=== PATIENT | male | born 1985 | race Caucasian/White ===

== ENCOUNTER 2022-06-09 14:39 | Outpatient (CLI) | payer OTHER, SELFPAY ==
[2022-06-09 10:38] LABS: Creatinine Urine 332.3 mg/dL
[2022-06-09 10:40] LABS: Albumin* 4.5 g/dL (3.3-5.0); Chloride* 97 mmol/L (96-114)
[2022-06-09 10:41] LABS: Potassium* 4.7 mmol/L (3.6-5.1); Sodium* 136 mmol/L (135-149)
[2022-06-09 10:42] LABS: Microalbumin Creatinine Ratio 0 mg/g (0-30); Microalbumin Urine 2 mg/dL
[2022-06-09 10:43] LABS: Aspartate Amino Transferase* 126 U/L (12-35); Bilirubin Total* 1.3 mg/dL (0.1-1.5); Blood Urea Nitrogen* 19 mg/dL (5-24); Carbon Dioxide* 33 mmol/L (20-32); Cholesterol* 183 mg/dL (90-199); Creatinine* 0.8 mg/dL (0.5-1.5); Estimated Glomerular Filt Rate 116 ml/min; Glucose* 227 mg/dL (60-115); Total Protein* 7.1 g/dL (6.0-8.3)
[2022-06-09 10:44] LABS: Alanine Aminotransferase* 183 U/L (4-50); Alkaline Phosphatase* 83 U/L (40-150); Calcium* 9.8 mg/dL (8.4-10.6); HDL Cholesterol* 41 mg/dL (>=40); LDL Cholesterol Calculated 109 mg/dL (<100); Triglycerides* 164 mg/dL (40-149)
== END 2022-06-09 14:40 | disposition home or self-care (01) ==
PROVIDERS: PCP Internal Medicine; Visit Provider Internal Medicine
DX: E11.9 Type 2 diabetes mellitus without complications (principal); K76.0 Fatty (change of) liver, not elsewhere classified; E66.9 Obesity, unspecified
CPT/HCPCS: 80053; 80061; 82043; 82570

== ENCOUNTER 2022-09-14 16:15 | Outpatient (CLI) | payer OTHER, SELFPAY ==
[2022-09-14 17:38] LABS: Alanine Aminotransferase* 98 U/L (4-50); Aspartate Amino Transferase* 52 U/L (12-35)
== END 2022-09-14 16:16 | disposition home or self-care (01) ==
PROVIDERS: PCP Internal Medicine; Visit Provider Internal Medicine
DX: E11.9 Type 2 diabetes mellitus without complications (principal); K76.0 Fatty (change of) liver, not elsewhere classified; E66.9 Obesity, unspecified
CPT/HCPCS: 84450; 84460

== ENCOUNTER 2023-03-12 07:50 | Outpatient (CLI) | payer OTHER, SELFPAY | END 2023-03-12 07:51 | disposition home or self-care (01) | LOC: NFLDREF 11:56 | PROVIDERS: PCP Internal Medicine; Referring Provider Internal Medicine; Visit Provider Internal Medicine | DX: E11.9 Type 2 diabetes mellitus without complications (principal); E66.9 Obesity, unspecified; K76.0 Fatty (change of) liver, not elsewhere classified; Z13.6 Encounter for screening for cardiovascular disorders | CPT/HCPCS: 80053; 80061; 82043; 82570 ==

== ENCOUNTER 2023-09-28 08:05 | Outpatient (CLI) | payer OTHER, SELFPAY ==
--- OUTSIDE RECORDS SUMMARY | 2023-10-01 08:43 | XMS_ITS | Clinical Summary ---
Author Name Unknown Organization [facility] Address [address] [place] [address] Care Team Providers Care Cranberry Farm Supervisor Name Role Phone No Ref-Primary, Physician Primary Care Provider Vikash Major MD Unavailable [phone] Mary Martino APRN, CNP Unavailable [phone] Allergies No known active allergies Medications Medication Sig Dispensed Refills Start Date End Date Status cholestyramine (QUESTRAN) 4 g packetIndications:S/P cholecystectomy Take 1 packet (4 g) by mouth 3 times daily (with meals) 90 each 1 12/08/2020 Active Additional Information Patient not taking.Reported on 05/25/2021 metFORMIN (GLUCOPHAGE-XR) 500 MG 24 hr tabletIndications:Typ e 2 diabetes mellitus without complication, without long-term current use of insulin (H) Take 1 tablet (500 mg) by mouth daily (with dinner) 90 tablet 3 05/25/2021 Active Active Problems Problem Noted Date Diagnosed Date Diabetes mellitus, type 2 12/17/2020 Morbid obesity 12/17/2020 Immunizations Name Administration Dates Next Due COVID-19 MONOVALENT 12+ (Pfizer) 01/29/2021,05/2 09/2020 Flu, Unspecified 04/30/2018 Hepatitis B, Adult 12/08/2020 Influenza (H1N1) 04/30/2018 MMR 12/08/2020 TDAP (Adacel,Boostrix) 12/08/2020 Family History Medical History Relation Comments Prostate Cancer Paternal Grandfather Diabetes Paternal Grandmother Relation Status Comments Father Alive Maternal Grandfather Alive Heart surge ry Maternal Grandmother Alive Mother Alive Paternal Grandfather Paternal Grandmother Sister Alive Social History Tobacco Use Types Packs/Day Years Used Date Smoking Tobacco: Light Smoker Cigarettes Cigars Smokeless Tobacco: Never Tobacco Cessation:Ready to Q uit: No; Counseling Given: No Comments:Random. Alcohol Use Standard Drinks/Week Comments Yes 0 (1 standard drink = 0.6 oz pur e alcohol) PHQ-2 Answer Date Recorded PHQ-2 Score 0 12/08/2020 Adolescent Education Answer Date Record ed Getting School Help Needed Not on file 05/11 Sex and Gender Information Value Date Recorded Sex Assigned at Not on file Gender Identity Not on file Sexual Orientation Not on file Last Filed Vital Signs Vital Sign Reading Time Taken Comments Blood Pressure 128/76 05/25/2021 4:07 PM CDT Pulse 66 05/25/2021 4:07 PM CDT Temperature 36.3 ??C (97.4 ??F) 05/25/2021 4:07 PM CD T Respiratory Rate 20 05/25/2021 4:07 PM CDT Oxygen Saturation 98% 05/25/2021 4:07 PM CDT Inhaled Oxygen Concentration - - Weight 119.3 kg (263 lb) 05/25/2021 4:07 PM CDT Height 177.8 cm (5' 10) 05/25/2021 4:07 PM CDT Body Mass Index 37.74 05/25/2021 4:07 PM CDT Plan of Treatment Health Maintenance Due Date Last Done Comments ANNUAL REVIEW OF HM ORDERS 1984 DIABETIC FOOT EXAM 1984 Pneumococcal Vaccine: Pediatrics (0 to 5 Years) and At-Risk Patients (6 to 64 Years) (1 of 2 - PCV) 1990 LIPID 06/02/2020 06/02/2019, 06/01/2017 HEPATITIS B IMMUNIZATION (2 of 3 - 19+ 3-dose series) 01/05/2021 12/08/2020 A1C 08/25/2021 05/25/2021, 11/19, 06/02/2019 YEARLY PREVENTIVE VISIT 12/08/2021 12/09/19 21, 06/02/2019, 06/01/2017 MICROALBUMIN 12/17/2021 12/17/2020, 06/02/2019 BMP 05/25/2022 05/25/2021, 11/20, 12/08/2020, Additional history exists EYE EXAM 05/25/2022 05/25/2021 COVID-19 Vaccine ( season) 2023 01/29/2021, 01/08/2021 INFLUENZA VACCINE (#1) 2023 04/30/2018, 2017 PHQ-2 (once per calendar year) 2023 12/08/2020, 07/21/2019, 06/02/2019, Additional history exists ADVANCE CARE PLANNING 12/08/2025 12/08/2020 (Decline d) DTAP/TDAP/TD IMMUNIZATION (2 - Td or Tdap) 12/08/2030 12/08/2020 HIV SCREENING Completed 06/02/2019 HEPATITIS C SCREENING Completed 12/17/2020 HPV IMMUNIZATION Aged Out No longer e ligible based on patient's age to complete this topic IPV IMMUNIZATION Aged Out No longer e ligible based on patient's age to complete this topic MENINGITIS IMMUNIZATION Aged Out No l onger eligible based on patient's age to complete this topic RSV MONOCLONAL ANTIBODY Aged Out No l onger eligible based on patient's age to complete this topic Care Teams Cranberry Farm Supervisor Relationship Specialty Start Date End Date No Ref-Primary, Physician PCP - General 06/02/19 Vikash Major MD [address] [facility] [address] [place] [address] Urology 06/02/19 Mary Martino APRN UPPER SHAPER [address] [place] [address] Assigned PCP 05/29/21
--- OUTSIDE RECORDS SUMMARY | 2023-10-01 08:43 | XMS_ITS | Referral Summary ---
Author Name Unknown Organization [facility] Address [address] [place] [address] Care Team Providers Care Bobbin Washer Name Role Phone No Ref-Primary, Physician Primary Care Provider Vikash Major MD Unavailable [phone] Mary Martino APRN, CNP Unavailable [phone] Allergies No known active allergies Medications Medication [...] (H1N1) 04/30/2018 MMR 12/08/2020 TDAP (Adacel,Boostrix) 12/08/2020 Social History Tobacco Use Types Packs/Day Years [...] 05/25/2021 4:07 PM CDT Plan of Treatment Not on file Care Teams Bobbin Washer Relationship Specialty Start Date End Date No Ref-Primary, Physician PCP - General 06/02/19 Vikash Major MD [address] [address] Urology 06/02/19 Mary Martino APRN PAYROLL BENEFITS CLERK [address] [place] [address] Assigned PCP 05/29/21
== END 2023-09-28 08:06 | disposition home or self-care (01) ==
LOC: NFLDREF 10-01 08:28
PROVIDERS: PCP Internal Medicine; Referring Provider Internal Medicine; Visit Provider Internal Medicine
DX: E11.9 Type 2 diabetes mellitus without complications (principal); K76.0 Fatty (change of) liver, not elsewhere classified; R10.9 Unspecified abdominal pain; Z79.84 Long term (current) use of oral hypoglycemic drugs
CPT/HCPCS: 80053; 80061; 82043; 82150; 82570; 83516; 83690; 86364

== ENCOUNTER 2023-12-31 07:52 | Outpatient (CLI) | payer OTHER, SELFPAY ==
--- OUTSIDE RECORDS SUMMARY | 2024-01-02 08:36 | XMS_ITS | Clinical Summary ---
Author Name Unknown Organization [facility] Address [address] [place] [address] Care Team Providers Care Poison Information Specialist Name Role Phone No Ref-Primary, Physician Primary Care Provider Vikash Major MD Unavailable [phone] Mary Martino APRN, CNP Unavailable [phone] Allergies No known active allergies Medications Medication [...] COVID-19 Vaccine ( season) 2023 01/29/2021, 01/08/2021 PHQ-2 (once per calendar year) 2023 12/08/2020, 07/21/2019, 06/02/2019, Additional history exists INFLUENZA VACCINE (Season Ended) 2024 04/30/2018, 04/30/2018 ADVANCE CARE PLANNING 12/08/2025 12/08/2020 (Decline d) [...] on patient's age to complete this topic Procedures Procedure Name Priority Date/Time Associated Diagnosis Comments BASIC METABOLIC PANEL Routine 05/25/2021 4:37 PM CDT Type 2 diabetes mellitus without complication, without long-term current use of insulin (H) HEMOGLOBIN A1C Routine 05/25/2021 4:37 PM CDT Type 2 diabetes mellitus without complication, without long-term current use of insulin (H) EYE EXAM - HIM SCAN Routine 05/25/2021 HEPATITIS C ANTIBODY Routine 12/17/2020 11:56 AM CDT Elevated liver function tests ALBUMIN RANDOM URINE QUANTITATIVE Routine 12/17/2020 11:50 AM CDT Controlled type 2 diabetes mellitus without complication, without long-term current use of insulin (H) HIV ANTIGEN ANTIBODY COMBO Routine 06/02/2019 8:48 AM CDT Routine general medical examination at a health care facility LIPID REFLEX TO DIRECT LDL PANEL Routine 06/02/2019 8:48 AM CDT Routine general medical examination at a [facility] care facility from Last 3 Months or Most Recently Relevant to Health Maintenance Results * (ABNORMAL) Hemoglobin A1c (05/25/2021 4:37 PM CDT) Hemoglobin A1C 6.3(H) 0.0 - 5.6 % 05/25/2021 5:15 PM CDT [facility] Comment: Normal <5.7% Prediabetes 5.7-6.4% ?? Diabetes 6.5% or higher Note: Adopted from ADA consensus guidelines. Blood BLOOD SPECIMEN / Unknown Venipuncture / Unknown 05/25/2021 4:37 PM CDT 05/25/2021 4:37 PM CDT Mary Martino APRN DRILL GRINDER LAB - BLOOD ORDERABLES [facility] [address] [facility], [address] [place] [address], [facility] [phone] * (ABNORMAL) Basic metabolic panel (Ca, Cl, CO2, Creat, Gluc, K, Na, BUN) (05/25/2021 4:37 PM CDT) Sodium 138 133 - 144 mmol/L 05/26/2021 5:49 PM CDT [facility] Potassium 4.4 3.4 - 5.3 mmol/L 05/26/2021 5:49 PM CDT [facility] Chloride 104 94 - 109 mmol/L 05/26/2021 5:49 PM CDT [facility] Carbon Dioxide (CO2) 26 20 - 32 mmol/L 05/26/2021 5:49 PM CDT [facility] Anion Gap 8 3 - 14 mmol/L 05/26/2021 5:49 PM CDT [facility] Urea Nitrogen 22 7 - 30 mg/dL 05/26/2021 5:49 PM CDT [facility] Creatinine 0.96 0.66 - 1.25 mg/dL 05/26/2021 5:49 PM CDT [facility] Calcium 9.1 8.5 - 10.1 mg/dL 05/26/2021 5:49 PM CDT [facility] Glucose 153(H) 70 - 99 mg/dL 05/26/2021 5:49 PM CDT [facility] GFR Estimate >90 >60 mL/min/1.7 3m2 05/26/2021 5:49 PM CDT [facility] Comment:As of February 27, 2021, eGFR is calculated by the CKD-EPI creatinine equation, without race adjustment. eGFR can be influenced by muscle mass, exercise, and diet. The reported eGFR is an estimation only and is only applicable if the renal function is stable. Blood BLOOD SPECIMEN / Unknown Venipuncture / Unknown 05/25/2021 4:37 PM CDT 05/25/2021 4:37 PM CDT Mary Martino APRN, CNP LAB - BLOOD ORDERABLES LABORATORY [facility] [address] Lab (no room number, 1st floor of clinic) [place] [address], [facility] [phone] * Eye Exam - HIM Scan (05/25/2021) RETINOPATHY UNKNOWN Narrative Garland Mccormack - 05/25/2021 Patient Reported Diabetic Eye Exam Received: Yesterday Mary Martino APRN CNP ??P Abstract Quality Initiatives Have you had a diabetic eye exam in the last 12 months? Yes- Date of last eye exam: 05-25-21, ??Location: [facility] Patient Reported OTHER * Hepatitis C antibody (12/17/2020 11:56 AM CDT) Hepatitis C Antibody Nonreactive NR^Nonre active 12/18/2020 10:59 AM CDT [facility] Comment: Assay performance characteristics have not been established for newborns, infants, and children Blood 12/17/2020 11:5 6 AM CDT 12/17/2020 12:01 PM CDT Julia Gomez MD LAB - BLOOD ORDERA BLES Performing Organization Address City/[facility]/ZIP Co de Phone Number [facility] [address] [place] [address] * Albumin Random Urine Quantitative with Creat Ratio (12/17/2020 11:50 AM CDT) Creatinine Urine 151 mg/dL 12/18/2020 9:48 AM CDT [facility] Albumin Urine mg/L 8 mg/L 12/18/2020 9:59 AM CDT [facility] Albumin Urine mg/g Cr 5.45 0 - 17 mg/g Cr 12/18/2020 9:59 AM CDT [facility] Urine 12/17/2020 11:5 0 AM CDT 12/17/2020 11:55 AM CDT Julia Gomez MD LAB - URINE ORDERA BLEKate Performing Organization Address City/[facility]/ZIP Co de Phone Number [facility] [address] [place] [address] * HIV Antigen Antibody Combo (06/02/2019 8:48 AM CDT) HIV Antigen Antibody Combo Nonreactive NR^Nonrea ctive 06/03/2019 10:23 AM CDT [facility] Comment:HIV-1 p24 Ag & HIV-1 /HIV-2 Ab Not Detected Blood specimen (specimen) 06/02/2019 8:48 AM CDT 06/02/2019 8:49 AM CDT Julia Gomez MD LAB - BLOOD ORDERA BLEKate Performing Organization Address City/[facility]/ZIP Co de Phone Number [facility] [address] [place] [address] * (ABNORMAL) Lipid panel reflex to direct LDL Fasting (06/02/2019 8:48 AM CDT) Cholesterol 158 <200 mg/dL 06/02/2019 1:38 PM CDT [facility] Triglycerides 149 <150 mg/dL 06/02/2019 1:38 PM CDT [facility] Comment:Fasting specimen HDL Cholesterol 36(L) >39 mg/dL 9 1:39 PM CDT [facility] LDL Cholesterol Calculated 92 <100 mg/dL 06/02/2019 1:39 PM CDT [facility] Comment:Desirable: <100 mg/d l Non HDL Cholesterol 122 <130 mg/dL 06/02/2019 1:39 PM CDT [facility] Blood specimen (specimen) 06/02/2019 8:48 AM CDT 06/02/2019 8:49 AM CDT Julia Gomez MD LAB - BLOOD ORDERA BLES [facility] [address] [place] [address] from Last 3 Months or Most Recently Relevant to Health Maintenance Care Teams Poison Information Specialist Relationship Specialty Start Date End Date No Ref-Primary, Physician PCP - General 06/02/19 Vikash Major MD [address] [address] Urology 06/02/19 Mary Martino APRN DRILL GRINDER [address] [place] [address] Assigned PCP 05/29/21
--- OUTSIDE RECORDS SUMMARY | 2024-01-02 08:36 | XMS_ITS | Referral Summary ---
Author Name Unknown Organization [facility] Address [address] [place] [address] Care Team Providers Care Edger Technician Name Role Phone No Ref-Primary, Physician Primary Care Provider Vikash Major MD Unavailable [phone] Mary Martino APRN, CNP Unavailable [phone] Allergies No known active allergies Medications Medication [...] CDT Plan of Treatment Not on file Procedures Procedure Name Priority Date/Time Associated Diagnosis [...] medical examination at a health care facility from Last 3 Months or [...] 05/25/2021 4:37 PM CDT Mary Martino APRN [facility] - BLOOD ORDERABLES [facility] [address] [facility], [address] [place] [address], [facility] [phone] * (ABNORMAL) Basic metabolic panel (Ca, Cl, [...] APRN, CNP LAB - BLOOD ORDERABLES LABORATORY [facility] [address] Lab (no room number, 1st floor of clinic) [place] [address], [facility] [phone] * Eye Exam - HIM Scan (05/25/2021) RETINOPATHY UNKNOWN Narrative Garland Mccormack - 05/25/2021 Patient Reported Diabetic Eye Exam Received: Yesterday Mary Martino APRN CNP ??P Abstract Quality Initiatives Have you had a diabetic eye exam in the last 12 months? Yes- Date of last eye exam: 05-25-21, ??Location: [place] Patient Reported OTHER * Hepatitis C antibody (12/17/2020 11:56 AM CDT) Hepatitis C Antibody Nonreactive NR^Nonre active 12/18/2020 10:59 AM CDT [facility] Comment: Assay performance characteristics have not been established for newborns, infants, and children Blood 12/17/2020 11:5 6 AM CDT 12/17/2020 12:01 PM CDT Julia Gomez MD LAB - BLOOD ORDERA BLES Performing Organization Address City/[facility]/ZIP Co de Phone Number [facility] [address] [place] [address] * Albumin Random Urine Quantitative with Creat Ratio (12/17/2020 11:50 AM CDT) Creatinine Urine 151 mg/dL 12/18/2020 9:48 AM CDT [facility] Albumin Urine mg/L 8 mg/L 12/18/2020 9:59 AM CDT [facility] Albumin Urine mg/g Cr 5.45 0 - 17 mg/g Cr 12/18/2020 9:59 AM CDT [facility] Urine 12/17/2020 11:5 0 AM CDT 12/17/2020 11:55 AM CDT Julia Gomez MD LAB - URINE ORDERA BLES Performing Organization Address City/[facility]/ZIP Co de Phone Number [facility] [address] [place] [address] * HIV Antigen Antibody Combo (06/02/2019 8:48 AM CDT) HIV Antigen Antibody Combo Nonreactive NR^Nonrea ctive 06/03/2019 10:23 AM CDT [facility] Comment:HIV-1 p24 Ag & HIV-1 /HIV-2 Ab Not Detected Blood specimen (specimen) 06/02/2019 8:48 AM CDT 06/02/2019 8:49 AM CDT Julia Gomez MD LAB - BLOOD ORDERA BLES Performing Organization Address City/[facility]/ZIP Co de Phone Number [facility] [address] [place] [address] * (ABNORMAL) Lipid panel reflex to direct LDL Fasting (06/02/2019 8:48 AM CDT) Cholesterol 158 <200 mg/dL 06/02/2019 1:38 PM CDT [facility] Triglycerides 149 <150 mg/dL 06/02/2019 1:38 PM CDT [facility] Comment:Fasting specimen HDL Cholesterol 36(L) >39 mg/dL 9 1:39 PM CDT [facility] LDL Cholesterol Calculated 92 <100 mg/dL 06/02/2019 1:39 PM CDT [facility] Comment:Desirable: <100 mg/d l Non HDL Cholesterol 122 <130 mg/dL 06/02/2019 1:39 PM CDT [facility] Blood specimen (specimen) 06/02/2019 8:48 AM CDT 06/02/2019 8:49 AM CDT Julia Gomez MD LAB - BLOOD ORDERA BLES [facility] [address] [place], [place] [address] from Last 3 Months or Most Recently Relevant to Health Maintenance Care Teams Edger Technician Relationship Specialty Start Date End Date No Ref-Primary, Physician PCP - General 06/02/19 Vikash Major MD [address] [facility] [address] [place], [place] [address] Urology 06/02/19 Mary Martino APRN HEALTH AND FITNESS PROFESSOR [address] [place], [place] [address] Assigned PCP 05/29/21
== END 2023-12-31 07:53 | disposition home or self-care (01) ==
LOC: NFLDREF 01-02 08:34
PROVIDERS: PCP Internal Medicine; Referring Provider Internal Medicine; Visit Provider Internal Medicine
DX: E11.65 Type 2 diabetes mellitus with hyperglycemia (principal); Z79.84 Long term (current) use of oral hypoglycemic drugs
CPT/HCPCS: 84450; 84460

== ENCOUNTER 2024-03-10 08:10 | Outpatient (CLI) | payer OTHER, SELFPAY | END 2024-03-10 08:11 | disposition home or self-care (01) | LOC: NFLDREF 03-12 06:29 | PROVIDERS: PCP Internal Medicine; Referring Provider Internal Medicine; Visit Provider Internal Medicine | DX: E11.9 Type 2 diabetes mellitus without complications (principal); E66.9 Obesity, unspecified; K76.0 Fatty (change of) liver, not elsewhere classified; E11.65 Type 2 diabetes mellitus with hyperglycemia | CPT/HCPCS: 80053; 80061 ==

== ENCOUNTER 2024-07-21 07:37 | Outpatient (CLI) | payer OTHER, SELFPAY ==
--- OUTSIDE RECORDS SUMMARY | 2024-07-21 15:49 | XMS_ITS | Encounter Summary ---
Author Organization [facility] Address [address] [place] [address] Phone [email or web address] Care Team Providers Care Medical Device Sales Consultant Name Role Phone Unavailable Primary Care Provider Unavailabl e Encounter Details Date Type Department Care Team (Late st Contact Info) Description 07/02/2024 Claims Summary [facility] [address] [place] [address] Provider, Claims Summary External, [address] [place], [place] [address] Social History Tobacco Use Types Packs/Day Years Used Date Smoking Tobacco: Never Assessed Intimate Partner Violence Answer Date R ecorded Insults You Not on file 12/04/2020 Threatens You Not on file 12/04/2020 Screams at You Not on file 12/04/2020 Physically Hurt Not on file 12/04/2020 Intimate Partner Violence Score Not on file 12/04/2020 Stress Answer Date Recorded Stress in your Life Not on file 06/25/2024 Dealing with Stress 3 06/25/2024 Sex and Gender Information Value Date Recorded Sex Assigned at Not on file Legal Sex Male 9:23 AM CDT Gender Identity Not on file Sexual Orientation Not on file documented as of this encounter Plan of Treatment Not on file documented as of this encounter Visit Diagnoses Not on filedocumented in this encounter
--- OUTSIDE RECORDS SUMMARY | 2024-07-21 15:49 | XMS_ITS | Clinical Summary ---
Author Organization [facility] Address [address] [place] [address] Phone [email or web address] Care Team Providers Care Tank Pumper Panelboard Name Role Phone Unavailable Primary Care Provider Unavailabl e Encounters Date Type Department Care Team Description 07/02/2024 Claims Summary [facility] [address] [place] [address] Provider, Claims Summary ExternalMD 05/29/2024 Claims Summary [facility] [address] [place] [address] Provider, Claims Summary MD Mari 04/30/2024 Claims Summary [facility] [address] [place] [address] Provider, Claims Summary MD Mari from Last 3 Months Social History Tobacco Use Types Packs/Day Years [...] on file Sexual Orientation Not on file Plan of Treatment Not on file
--- OUTSIDE RECORDS SUMMARY | 2024-07-21 15:49 | XMS_ITS | Clinical Summary ---
Author Organization [facility] Address [address] [place] [address] Care Team Providers Care Customer Services Manager Name Role Phone No Ref-Primary, Physician Primary Care Provider Vikash Major MD Unavailable [phone] Allergies No known active allergies Medications cholestyramine (QUESTRAN) 4 g packetIndications:S /P cholecystectomy Take 1 packet (4 g) by mouth 3 times daily (with meals) 90 each 1 12/09/19 Active Additional Information Patient not taking.Reported on 05/25/2021 metFORMIN (GLUCOPHAGE-XR) 500 MG 24 hr tabletIndications:T ype 2 diabetes mellitus without complication, without long-term current use of insulin (H) Take 1 tablet (500 mg) by mouth daily (with dinner) 90 tablet 3 05/25/20 Active Active Problems Problem Noted Date Diagnosed [...] at Not on file Legal Sex Male 12:38 PM CDT Gender Identity Not on file Sexual Orientation Not on file Last Filed Vital Signs Vital Sign Reading Time Taken Comments Blood Pressure 128/76 05/25/2021 4:07 PM CDT Pulse 66 05/25/2021 4:07 PM CDT Temperature 36.3 C (97.4 F) 05/25/2021 4:07 PM CDT Respiratory Rate 20 05/25/2021 4:07 PM CDT Oxygen Saturation 98% 05/25/2021 4:07 PM CDT Inhaled Oxygen Concentration - - Weight 119.3 kg (263 lb) 05/25/2021 4:07 PM CDT Height 177.8 cm (5' 10) 05/25/2021 4:07 PM CDT Body Mass Index 37.74 05/25/2021 4:07 PM CDT Plan of Treatment Not on file Insurance [facility] Care Teams Customer Services Manager Relationship Specialty Start Date End Date No Ref-Primary, Physician PCP - General 06/02/19 Vikash Major MD [address] [facility] [address] [place] [address] Urology 06/02/19
--- OUTSIDE RECORDS SUMMARY | 2024-07-21 15:49 | XMS_ITS | Encounter Summary ---
Author Organization [facility] Address [address] [place] [address] Phone [email or web address] Care Team Providers Care Marketing Development Representative Name Role Phone Unavailable Primary Care Provider Unavailabl e Encounter Details Date Type Department Care Team (Late st Contact Info) Description 04/30/2024 Claims Summary [facility] [address] [place] [address] Provider, Claims Summary External, [address] [place] [address] Social History Tobacco Use Types Packs/Day Years Used Date Smoking Tobacco: Never Assessed Intimate Partner Violence Answer Date R ecorded Insults You Not on file 12/04/2020 Threatens You Not on file 12/04/2020 Screams at You Not on file 12/04/2020 Physically Hurt Not on file 12/04/2020 Intimate Partner Violence Score Not on file 12/04/2020 Stress Answer Date Recorded Stress in your Life 0 09/28/2020 Dealing with Stress Not on file 09/28/2020 Sex and Gender Information Value Date Recorded Sex Assigned at Not on file Legal Sex Male 9:23 AM CDT Gender Identity Not on file Sexual Orientation Not on file documented as of this encounter Plan of Treatment Not on file documented as of this encounter Visit Diagnoses Not on filedocumented in this encounter
--- OUTSIDE RECORDS SUMMARY | 2024-07-21 15:49 | XMS_ITS | Referral Summary ---
Author Organization [facility] Address [address] [place] [address] Care Team Providers Care Avian Keeper Name Role Phone No Ref-Primary, Physician Primary Care Provider Vikash Major MD Unavailable [phone] Allergies No known active allergies Medications cholestyramine [...] Plan of Treatment Not on file Insurance [facility] Care Teams Avian Keeper Relationship Specialty Start Date End Date No Ref-Primary, Physician PCP - General 06/02/19 Vikash Major MD [address] [address] Urology 06/02/19
--- OUTSIDE RECORDS SUMMARY | 2024-07-21 15:49 | XMS_ITS | Encounter Summary ---
Author Organization [facility] Address [address] [place] [address] Phone [email or web address] Care Team Providers Care Prenatal Nurse Name Role Phone Unavailable Primary Care Provider Unavailabl e Encounter Details Date Type Department Care Team (Late st Contact Info) Description 03/19/2024 Claims Summary [facility] [address] [place] [address] Provider, Claims Summary External, [address] [place] [address] Social History Tobacco Use Types Packs/Day [...]
--- OUTSIDE RECORDS SUMMARY | 2024-07-21 15:49 | XMS_ITS | Encounter Summary ---
Author Organization [facility] Address [address] [place] [address] Phone [email or web address] Care Team Providers Care Dietetics Director Name Role Phone Unavailable Primary Care Provider Unavailabl e Encounter Details Date Type Department Care Team (Late st Contact Info) Description 05/29/2024 Claims Summary [facility] [address] [place] [address] Provider, Claims Summary External, [address] [place] [address] Social History Tobacco Use Types Packs/Day [...]
== END 2024-07-21 07:38 | disposition home or self-care (01) ==
LOC: NFLDREF 15:47
PROVIDERS: PCP Internal Medicine; Referring Provider Internal Medicine; Visit Provider Internal Medicine
DX: E11.65 Type 2 diabetes mellitus with hyperglycemia (principal); E66.01 Morbid (severe) obesity due to excess calories; K76.0 Fatty (change of) liver, not elsewhere classified
CPT/HCPCS: 80053; 80061; 82043; 82570

== ENCOUNTER 2024-08-18 15:18 | Outpatient (CLI) | payer OTHER, SELFPAY ==
--- NOTE | 2024-08-18 15:30 | MR_ITS ---
[address] [address] Phone:?[phone] Fax:?[phone] Referring Physician Information: Fermin Gamino M.D. [address] [facility] [place] [address] Phone:?[phone] Fax:?[phone] Patient:Donal Adkins Dago.Shila.B:?1985 Sex:?Male Phone:?[phone] [facility] MRN:?[id number] Exam Date:?08/18/2024 EXAM: MRI of the RIGHT KNEE, without contrast CLINICAL: Right knee pain. Evaluate for medial meniscal tear. COMPARISONS: X-rays dated 08/11/2024. TECHNICAL: Multiplanar multisequence MRI of the right knee was obtained. SEDATION: None. CONTRAST: None. FINDINGS: Ligaments: ACL: Intact and unremarkable. PCL: Intact and unremarkable. MCL: Intact and unremarkable. LCL: Intact and unremarkable. Posterolateral corner: Popliteus, biceps femoris, iliotibial band, and the popliteofibular ligament appear intact. Posteromedial corner: Semimembranosus, pes anserine tendons and posterior oblique ligament appear intact. Extensor mechanism: Patellar tendon: Intact, without tendinopathy. Quadriceps tendon: Intact, without tendinopathy. Retinacula: Medial and lateral retinacula are intact. Fat pads: Unremarkable infrapatellar Hoffa's, quadriceps and prefemoral fat pads. Patellofemoral joint: Patella: No significant chondromalacia. Trochlea: No significant chondromalacia. Medial compartment: Medial meniscus: No evidence of discrete meniscal tear or meniscal displacement. Medial cartilage: No significant chondromalacia. Lateral compartment: Lateral meniscus: No evidence of discrete meniscal tear or meniscal displacement. Lateral cartilage: No significant chondromalacia. Knee joint: Effusion: Physiologic right knee effusion. Intra-articular bodies:?No convincing bodies identified. Popliteal cyst: None. Bones: No suspicious bone marrow signal alteration or fracture line. There is increased edema involving the medial knee subcutaneous soft tissues as well as involving the subcutaneous soft tissues lateral to the imaged proximal fibula, nonspecific. No drainable soft tissue fluid collection. IMPRESSION: 1. No evidence of meniscal tear, ligamentous injury, fracture or chondral defect. 2. No significant joint effusion. JCZ Electronically signed on 08/19/2024 10:34:00 AM by Stewart Jones D.O.
== END 2024-08-18 15:19 | disposition home or self-care (01) ==
LOC: MRI 15:19
PROVIDERS: PCP Internal Medicine; Visit Provider Orthopaedic Surgery
DX: M25.561 Pain in right knee (principal)
CPT/HCPCS: 73721

== ENCOUNTER 2025-02-06 08:03 | Outpatient (CLI) | payer OTHER, SELFPAY | END 2025-02-06 08:04 | disposition home or self-care (01) | LOC: NFLDREF 02-09 17:11 | PROVIDERS: PCP Internal Medicine; Referring Provider Internal Medicine; Visit Provider Internal Medicine | DX: E11.65 Type 2 diabetes mellitus with hyperglycemia (principal) | CPT/HCPCS: 80053; 80061 ==

== ENCOUNTER 2025-07-31 07:52 | Outpatient (CLI) | payer OTHER, SELFPAY | END 2025-07-31 07:53 | disposition home or self-care (01) | LOC: NFLDREF 08-05 09:58 | PROVIDERS: PCP Internal Medicine; Referring Provider Internal Medicine; Visit Provider Internal Medicine | DX: E11.65 Type 2 diabetes mellitus with hyperglycemia (principal) | CPT/HCPCS: 82043; 82570; 84450; 84460 ==